=== PATIENT | male | born 1945 | race Caucasian/White ===

== ENCOUNTER 2016-11-06 08:18 | Outpatient (CLI) | payer MEDICARE ==
[2016-11-06 12:48] LABS: ALBUMIN/GLOBULIN RATIO 1.4 (1.0-2.2); BILIRUBIN,TOTAL 0.8 mg/dL (0.2-1.0); CREATININE 0.9 mg/dL (0.6-1.2); POTASSIUM 4.2 mmol/L (3.5-5.0); TOTAL PROTEIN 7.1 g/dL (6.7-8.2)
[2016-11-06 12:50] LABS: HEMOGLOBIN A1C 0.61 g/dL
[2016-11-06 12:58] LABS: BASOPHILS # (AUTO) 0.1 10^3/uL (0.0-0.1); BASOPHILS % (AUTO) 0.9 %; EOSINOPHILS # (AUTO) 0.4 10^3/uL (0.0-0.7); EOSINOPHILS % (AUTO) 6.3 %; HCT - HEMATOCRIT 45.3 % (42.0-52.0); HGB - HEMOGLOBIN 15.3 g/dL (14.0-18.0); LYMPHOCYTES # (AUTO) 2.2 10^3/uL (1.5-3.5); LYMPHOCYTES % (AUTO) 39.1 %; MEAN CORPUSCULAR HEMOGLOBIN 30.7 pg (27.0-31.0); MEAN CORPUSCULAR HGB CONC 33.8 g/dL (32.0-36.0); MEAN CORPUSCULAR VOLUME 90.8 fL (80.0-94.0); MONOCYTES # (AUTO) 0.5 10^3/uL (0.0-1.0); MONOCYTES % (AUTO) 8.9 %; NEUTROPHILS # (AUTO) 2.6 10^3/uL (1.5-6.6); NEUTROPHILS % (AUTO) 44.8 %; NUCLEATED RED BLOOD CELLS AUTO 0.1 /100WBC; RED BLOOD COUNT 4.99 10^6/uL (4.70-6.10); UNCORRECTED WHITE BLOOD COUNT 5.7 x10^3/uL; WHITE BLOOD COUNT 5.7 x10^3/uL (4.8-10.8)
== END 2016-11-06 08:19 | disposition home or self-care (01) ==
LOC: LAB.N 08:18
PROVIDERS: ATTEND Internal Medicine
DX: R73.9 Hyperglycemia, unspecified (principal); M16.0 Bilateral primary osteoarthritis of hip; E04.1 Nontoxic single thyroid nodule
CPT/HCPCS: 36415; 80053; 83036; 84443; 85025

== ENCOUNTER 2017-02-28 09:10 | Emergency (ER) | payer MEDICARE, OTHER ==
[2017-02-28] MEDS ORDERED: KETOROLAC 30 MG/ML VIAL IM STA (10:40)
[2017-02-28] MEDS ORDERED: MORPHINE 10 MG/ML VIAL IM STA (10:40)
[2017-02-28] MEDS ORDERED: ACETAMINOPHEN 500 MG TABLET PO STA (10:41)
--- NOTE | 2017-02-28 10:43 | ED Physician Documentation ---
History of Present Illness - Stated complaint Stated Complaint: R HIP PAIN - Chief complaint Chief Complaint: Ext Problem - Additonal information Additional information: 71-year-old male with history of chronic right hip pain presents to the emergency department with worsening right hip pain as well as low back pain radiating down his leg for 1 day since doing lifting and moving of heavy wood yesterday. He has no weakness or numbness, he reports that his knee felt a little bit tingly or numb this morning and this has resolved. No trauma Review of Systems Constitutional: denies: Fever GI: reports: Reviewed and negative : reports: Reviewed and negative Musculoskeletal: reports: Back pain, Extremity pain Neurologic: reports: Reviewed and negative. denies: Numbness PD PAST MEDICAL HISTORY - Past Medical History Past Medical History: Yes Musculoskeletal: Osteoarthritis - Past Surgical History Past Surgical History: No - Present Medications Home Medications: Ambulatory Orders Medication Instructions Recorded Confirmed Acetaminophen [Tylenol] 650 mg PO Q6H PRN #30 tab 02/28/17 Cyclobenzaprine [Flexeril] 10 mg PO TID PRN #20 tablet 02/28/17 Naproxen [Naprosyn] 500 mg PO BID PRN #30 tablet 02/28/17 - Allergies Allergies/Adverse Reactions: Allergies Allergy/AdvReac Type Severity Reaction Status Date / Time penicillin G Allergy Rash Verified 02/28/17 09:29 anti Allergy Unknown Uncoded 02/28/17 09:34 - Social History Does the pt smoke?: No Smoking Status: Never smoker Does the pt drink ETOH?: No Does the pt have substance abuse?: No - Immunizations Immunizations are current?: Yes - POLST Patient has POLST: No PD ED PE NORMAL - Vitals Vital signs reviewed: Yes - General General: Alert and oriented X 3, No acute distress - HEENT HEENT: PERRL - Neck Neck: Supple, no meningeal sign - Cardiac Cardiac: RRR, No murmur - Respiratory Respiratory: Clear bilaterally - Abdomen Abdomen: Normal bowel sounds, Soft, Non tender, Non distended - Back Back: Other (no midline TTP, mild right lumbar TTP ) - Derm Derm: Warm and dry - Extremities Extremities: No deformity, Other (mild right hip TTP, no deformity, FROM ) - Neuro Neuro: Alert and oriented X 3 - Psych Psych: Normal mood, Normal affect PD ED PE EXPANDED - Neuro Neuro: Normal motor, Normal Sensation (full strength lower extremities, saddle anesthesia). No: Weakness Results - Vitals Vitals: Vital Signs - 24 hr 02/28/17 02/28/17 02/28/17 09:26 11:32 13:55 Temperature 36 C L 36.3 C L Heart Rate 58 L 56 L 60 Respiratory 18 16 20 Rate Blood Pressure 159/81 H 148/61 H 140/75 H O2 Saturation 99 98 99 Oxygen O2 Source Room air PD MEDICAL DECISION MAKING - ED course ED course: 71 year old male with no significant past medical history p/w low back and leg pain consistent with sciatica or lumbar radiculopathy. Neurovascularly intact. No injury or bony TTP concerning for fracture. Return precautions and follow up instructions reviewed. Departure - Departure Disposition: 01 Home, Self Care Clinical Impression: Pain of lower extremity Qualifiers: Laterality: right Qualified Code(s): M79.604 - Pain in right leg Low back pain Qualifiers: Chronicity: acute Back pain laterality: right Sciatica presence: with sciatica Sciatica laterality: sciatica of right side Qualified Code(s): M54.41 - Lumbago with sciatica, right side Instructions: ED Back Care Tips, ED Low Back Pain Injury Follow-Up: Travis Salgado MD [Primary Care Provider] - Prescriptions: Acetaminophen [Tylenol] 650 mg PO Q6H PRN #30 tab PRN Reason: Pain Cyclobenzaprine [Flexeril] 10 mg PO TID PRN #20 tablet PRN Reason: Spasms Naproxen [Naprosyn] 500 mg PO BID PRN #30 tablet PRN Reason: Pain Comments: You should take it easy with plenty of restNo lifting over the next few days until you are feeling better. Make an appointment with her primary care doctor for follow-up, you may need physical therapy if her symptoms do not improve. You prescribed Naprosyn today, stop taking ibuprofen and did not take other NSAIDs such as aspirin. It is best to take this with food as it may irritate her stomach. You may take Tylenol as well. Return to the emergency department if you develop any problems with urination or your bowels or any numbness or weakness. Discharge Date/Time: 02/28/17 13:56
[2017-02-28] MEDS ORDERED: MORPHINE 10 MG/ML VIAL ONE (10:48)
[2017-02-28] MEDS ORDERED: KETOROLAC 30 MG/ML VIAL ONE (10:54)
[2017-02-28] MEDS ORDERED: ACETAMINOPHEN 500 MG TABLET PO ONE (10:54)
[2017-02-28 13:56] VITALS: BP 140/75
== END 2017-02-28 13:56 | disposition home or self-care (01) ==
LOC: ED 09:10
DX: M79.604 Pain in right leg (principal); M54.41 Lumbago with sciatica, right side; G89.29 Other chronic pain
CPT/HCPCS: 96372; 99283; A9270

== ENCOUNTER 2017-03-07 10:32 | Emergency (ER) | payer MEDICARE, OTHER ==
[2017-03-07 10:41] VITALS: BP 147/90
[2017-03-07] MEDS ORDERED: DEXAMETHASONE 10 MG/ML VIAL IM STA (13:05)
--- NOTE | 2017-03-07 13:11 | ED Physician Documentation ---
History of Present Illness - Stated complaint Stated Complaint: R LEG PX - Chief complaint Chief Complaint: Ext Problem - History obtained from History obtained from: Patient - History of Present Illness Timing: How many weeks ago (1) Pain level max: 9 Pain level now: 5 - Additonal information Additional information: Patient is a 71-year-old gentleman with a history of chronic low back pain as well as right hip osteoarthritis. States after cleaning up a construction site a week ago has had increasing pain on the right leg in the right knee. Worse with walking. Better with rest. He states that his been preventing him from sleeping at night. Has been taking Naprosyn and Tylenol as prescribed, but is now starting to develop some slight epigastric pain. No vomiting. No diarrhea. No blood in the stool or hematemesis. Patient is not using any assistive walking devices or braces. Review of Systems Constitutional: denies: Fever, Chills Respiratory: denies: Cough GI: denies: Nausea, Vomiting, Diarrhea, Hematemesis, Bloody / black stool Skin: denies: Rash Musculoskeletal: denies: Neck pain Neurologic: denies: Focal weakness, Numbness, Confused, Altered mental status PD PAST MEDICAL HISTORY - Past Medical History Past Medical History: Yes Musculoskeletal: Osteoarthritis - Past Surgical History Past Surgical History: No - Present Medications Home Medications: Ambulatory Orders Medication Instructions Recorded Confirmed Acetaminophen [Tylenol] 650 mg PO Q6H PRN #30 tab 02/28/17 03/07/17 Naproxen [Naprosyn] 500 mg PO BID PRN #30 tablet 02/28/17 03/07/17 Diclofenac Sodium [Voltaren] 4 gm TP Q8H PRN #1 gel..gram. 03/07/17 Hydrocodone/Acetaminophen 1 - 2 each PO Q6H PRN #10 tablet 03/07/17 [Hydrocodon-Acetaminophen 5-325] - Allergies Allergies/Adverse Reactions: Allergies Allergy/AdvReac Type Severity Reaction Status Date / Time penicillin G Allergy Rash Verified 03/07/17 10:41 anti Allergy Unknown Uncoded 02/28/17 09:34 - Social History Does the pt smoke?: No Smoking Status: Never smoker Does the pt drink ETOH?: No Does the pt have substance abuse?: No - Immunizations Immunizations are current?: Yes - POLST Patient has POLST: No PD ED PE NORMAL - Vitals Vital signs reviewed: Yes - General General: Alert and oriented X 3, No acute distress, Well developed/nourished - HEENT HEENT: PERRL, Moist mucous membranes - Neck Neck: Supple, no meningeal sign - Cardiac Cardiac: RRR, Strong equal pulses - Respiratory Respiratory: No respiratory distress, Clear bilaterally - Abdomen Abdomen: Soft, Non tender, Non distended - Back Back: No spinal TTP - Derm Derm: Warm and dry - Extremities Extremities: Other (Right lower extremity -Full range of motion of the hip as well as the knee without pain on passive range of motion. Neurovascularly intact. ACL, MCL, PCL, LCL are intact.) - Neuro Neuro: Alert and oriented X 3 - Psych Psych: Normal mood, Normal affect Results - Vitals Vitals: Vital Signs - 24 hr 03/07/17 10:36 Temperature 36.3 C L Heart Rate 92 Respiratory 16 Rate Blood Pressure 147/90 H O2 Saturation 99 Oxygen O2 Source Room air PD MEDICAL DECISION MAKING - ED course Complexity details: reviewed old records, considered differential, d/w patient ED course: Patient is a 71-year-old male who presents to the emergency department what appears to be musculoskeletal pain of the right lower extremity. Will stop the Naprosyn and place on Voltaren gel. Also prescribe a small amount of hydrocodone. He is ambulating with a normal gait in the emergency department. No evidence of fracture clinically. No joint effusion. No evidence of cellulitis or DVT. No edema. No calf tenderness. Patient counseled regarding signs and symptoms for which I believe and urgent re-evaluation would be necessary. Patient with good understanding of and agreement to plan and is comfortable going home at this time This document was made in part using voice recognition software. While efforts are made to proofread this document, sound alike and grammatical errors may occur. Departure - Departure Disposition: 01 Home, Self Care Clinical Impression: Osteoarthritis Qualifiers: Osteoarthritis location: hip Osteoarthritis type: primary Laterality: right Qualified Code(s): M16.11 - Unilateral primary osteoarthritis, right hip Pain of lower extremity Qualifiers: Laterality: right Qualified Code(s): M79.604 - Pain in right leg Condition: Good Instructions: ED Strain Muscle Ext Follow-Up: Travis Salgado MD [Primary Care Provider] - Within 1 week Prescriptions: Diclofenac Sodium [Voltaren] 4 gm TP Q8H PRN #1 gel..gram. PRN Reason: hip pain Hydrocodone/Acetaminophen [Hydrocodon-Acetaminophen 5-325] 1 - 2 each PO Q6H PRN #10 tablet PRN Reason: pain Comments: Stop the Naprosyn and try the Voltaren gel instead. Return if you worsen. You would likely benefit from physical therapy and this can be arranged with your doctor. Do not drink alcohol or drive while on narcotic pain medicine. Note that many narcotic pain relievers also contain tylenol/acetaminophen. Please ensure that your total dose of acetaminophen from all sources does not exceed 3 grams (3000mg) per day. You may constipated on this medication, take a stool softener such as "Colace" twice a day while you are on it. Also recommend a gutv-fdd-vwxdkxs laxative such as senna or MiraLAX any day that you do not have a bowel movement. If you received narcotic pain medication in the emergency department, do not drive or operate machinery for the next 24 hours. This document was made in part using voice recognition software. While efforts are made to proofread this document, sound alike and grammatical errors may occur.
[2017-03-07] MEDS ORDERED: DEXAMETHASONE 10 MG/ML VIAL ONE (13:13)
== END 2017-03-07 13:28 | disposition home or self-care (01) ==
LOC: ED 10:32
DX: M16.11 Unilateral primary osteoarthritis, right hip (principal); M79.604 Pain in right leg; M25.561 Pain in right knee; M54.5 Low back pain; G89.29 Other chronic pain
CPT/HCPCS: 96372; 99283

== ENCOUNTER 2017-03-18 11:36 | Outpatient (CLI) | payer MEDICARE, OTHER ==
--- NOTE | 2017-03-18 20:33 | MRI Report ---
EXAM: MRI LUMBAR SPINE WITHOUT CONTRAST EXAM DATE: 03/18/2017 12:34 PM. CLINICAL HISTORY: Lumbago with right-sided sciatica. COMPARISON: None. TECHNIQUE: Multiplanar, multisequence T1-weighted and fluid-sensitive sequences of the lumbar spine f rom T12 to S1 without contrast. Other: None. FINDINGS: Spinal Cord: The conus terminates at T12/L1. The conus medullaris and cauda equina are unremarkable. Alignment: No scoliosis or spondylolisthesis. Bone Marrow: Five zlu-wdd-vwkgawv lumbar vertebral bodies are assumed. No fractures. Type I endplate change is seen at L4-L5 and L5-S1. Disk Levels/Facets: T11-T12: The disk is desiccated. Anterior endplate spurring is present. T12-l1: Unremarkable. L1-L2: The disk is desiccated. Anterior endplate spurring is present. L2-L3: The disk is desiccated. A small right foraminal area protrusions results in minimal right fora suzanne narrowing. L3-L4: The disk is desiccated. A broad-based posterior disk protrusion results in mild spinal canal, moderate right foraminal narrowing and minimal left foraminal narrowing. L4-L5: A broad-based disk bulge, mild ligamentum flavum hypertrophy, and mild facet hypertrophy cause mild spinal canal, minimal right foraminal, and moderate left foraminal narrowing. L5-S1: Severe disk height loss is present. Anterior endplate spurring is present. A posterior disk/os teophyte complex and mild facet hypertrophy cause moderate bilateral foraminal narrowing. Musculature: Normal. No edema or fatty atrophy. Other: The partially visualized retroperitoneum is unremarkable. IMPRESSION: 1. Mild spinal canal and moderate right foraminal narrowing at L3-L4 due to disk protrusion. 2. Mild spinal canal and moderate left foraminal narrowing at L4-L5 due to disk and posterior element degenerative changes. 3. Moderate bilateral foraminal narrowing at L5-S1 due to disk and posterior element degenerative damion nges. Comment: The following findings are so common in adults without low back pain that while we report th eir presence, they must be interpreted with caution and in the context of the clinical situation. (Re jyothi Chinchilla et al, Spine 2001) Prevalence of findings in patients without low back pain: Disk degeneration (any evidence): 92% Disk desiccation/T2 signal loss: 83% Disk height loss: 56% Disk bulge: 64% Disk protrusion: 32% Annular tear/high intensity zone: 38% [facility] Referring Provider Line: [phone] SITE ID: [id number]
== END 2017-03-18 11:37 | disposition home or self-care (01) ==
LOC: DI 11:36
PROVIDERS: ATTEND Internal Medicine
DX: M51.16 Intervertebral disc disorders with radiculopathy, lumbar region (principal)
CPT/HCPCS: 72148

== ENCOUNTER 2017-11-02 12:22 | Outpatient (CLI) | payer MEDICARE, OTHER ==
[2017-11-02 13:07] LABS: ALBUMIN 4.3 g/dL (3.2-5.5); ALBUMIN/GLOBULIN RATIO 1.2 (1.0-2.2); BILIRUBIN,TOTAL 1.5 mg/dL (0.2-1.0); CALCIUM 8.8 mg/dL (8.5-10.3); CREATININE 0.8 mg/dL (0.6-1.2); TOTAL PROTEIN 7.8 g/dL (6.7-8.2)
[2017-11-02 14:04] LABS: HB2 TOTAL 17.1 g/dL; HEMOGLOBIN A1C 0.63 g/dL; HEMOGLOBIN A1C % 5.5 % (4.6-6.2)
== END 2017-11-02 12:23 | disposition home or self-care (01) ==
LOC: LAB 12:22
PROVIDERS: ATTEND Internal Medicine
DX: M16.0 Bilateral primary osteoarthritis of hip (principal); R73.9 Hyperglycemia, unspecified; Z12.5 Encounter for screening for malignant neoplasm of prostate; E04.1 Nontoxic single thyroid nodule; Z79.899 Other long term (current) drug therapy
CPT/HCPCS: 36415; 80053; 83036; 84443; G0103; 84153

== ENCOUNTER 2018-03-09 09:55 | Emergency (ER) | payer MEDICARE, OTHER ==
[2018-03-09 11:48] VITALS: BP 126/66
[2018-03-09 11:57] LABS: BILIRUBIN,URINE NEGATIVE (NEGATIVE); GLUCOSE, URINE (UA) NEGATIVE (NEGATIVE); KETONES,URINE (UA) NEGATIVE (NEGATIVE); LEUKOCYTE ESTERASE, URINE NEGATIVE (NEGATIVE); NITRITE,URINE NEGATIVE (NEGATIVE); OCCULT BLOOD,URINE NEGATIVE (NEGATIVE); PH,URINE 5.5 PH (5.0-7.5); PROTEIN,URINE NEGATIVE (NEGATIVE); UROBILINOGEN,URINE 0.2 (NORMAL) E.U./dL (NORMAL)
[2018-03-09 12:01] LABS: CLARITY,URINE CLEAR (CLEAR)
--- NOTE | 2018-03-09 12:04 | ED Physician Documentation ---
PD HPI ABD PAIN - Stated complaint Stated Complaint: ABD PX/RASH - Chief complaint Chief Complaint: Abd Pain - History obtained from History obtained from: Patient - History of Present Illness Timing - onset: How many days ago (several) Timing - duration: Days (several days of diarrhea and left sided abd pain. Has developed rash and pain in perirectal area.) Timing - details: Gradual onset, Waxing and waning Quality: Cramping, Aching. No: Sharp, Fullness/distended Location: LLQ Radiation: No: Left flank Improved by: BM. No: Eating Worsened by: No: Eating Associated symptoms: Diarrhea. No: Fever, Nausea, Vomiting, Constipation, Melena Similar symptoms before: Has not had sx before Recently seen: Not recently seen Review of Systems Constitutional: denies: Fever, Chills, Myalgias Nose: denies: Rhinorrhea / runny nose, Congestion Throat: denies: Sore throat Cardiac: denies: Chest pain / pressure Respiratory: denies: Dyspnea, Cough GI: reports: Abdominal Pain, Diarrhea. denies: Nausea, Vomiting, Bloody / black stool : denies: Dysuria, Frequency Skin: reports: Rash Neurologic: denies: Generalized weakness PD PAST MEDICAL HISTORY - Past Medical History Past Medical History: Yes GI: None Musculoskeletal: Osteoarthritis - Past Surgical History Past Surgical History: No - Present Medications Home Medications: Ambulatory Orders Medication Instructions Recorded Confirmed Acetaminophen [Tylenol] 650 mg PO Q6H PRN #30 tab 02/28/17 03/07/17 Naproxen [Naprosyn] 500 mg PO BID PRN #30 tablet 02/28/17 03/07/17 Diclofenac Sodium [Voltaren] 4 gm TP Q8H PRN #1 gel..gram. 03/07/17 Hydrocodone/Acetaminophen 1 - 2 each PO Q6H PRN #10 tablet 03/07/17 [Hydrocodon-Acetaminophen 5-325] Clotrimazole/Betamethasone Dip 1 applic TP TID #30 cream..g. 03/09/18 [Clotrimazole-Betamethasone Crm] Fluconazole [Diflucan] 150 mg PO ONCE #1 tablet 03/09/18 Loperamide [Imodium] 2 mg PO QID PRN #20 capsule 03/09/18 Naproxen 500 mg PO BID #20 tablet 03/09/18 Saccharomyces Boulardii [Florastor] 250 mg PO BID #30 capsule 03/09/18 - Allergies Allergies/Adverse Reactions: Allergies Allergy/AdvReac Type Severity Reaction Status Date / Time penicillin G Allergy Rash Verified 03/09/18 10:06 anti Allergy Unknown Uncoded 02/28/17 09:34 - Social History Does the pt smoke?: No Smoking Status: Never smoker Does the pt drink ETOH?: No Does the pt have substance abuse?: No - Immunizations Immunizations are current?: Yes - POLST Patient has POLST: No PD ED PE NORMAL - Vitals Vital signs reviewed: Yes - General General: Alert and oriented X 3, Well developed/nourished - HEENT HEENT: Pharynx benign - Neck Neck: Supple, no meningeal sign, No adenopathy - Cardiac Cardiac: RRR, No murmur - Respiratory Respiratory: Clear bilaterally - Abdomen Abdomen: Normal bowel sounds, Soft, Non distended, No organomegaly, Other (some tenderness without guarding left abd lower. No percussion nor rebound tenderness. ) - Male Male : Deferred - Rectal Rectal: Other (perirectal rash with demarcated red edges c/w yeast infection. No skin breakdown but is raw appearing. Rectal is guiac negative with diarrheal stool in vault. ) Results - Vitals Vitals: Oxygen O2 Source Room air - Labs Labs: Laboratory Tests 03/09/18 03/09/18 03/09/18 10:03 12:35 12:35 WBC 6.9 RBC 5.17 Hgb 16.0 Hct 45.4 MCV 87.7 MCH 30.9 MCHC 35.2 RDW 12.4 Plt Count 201 MPV 7.4 Neut # (Auto) 3.1 Lymph # (Auto) 2.7 [place] # (Auto) 0.9 Eos # (Auto) 0.2 Baso # (Auto) 0.1 Absolute Nucleated RBC 0.00 Nucleated RBC % 0.0 Sodium 138 Potassium 3.8 Chloride 102 Carbon Dioxide 29 Anion Gap 7.0 BUN 12 Creatinine 0.9 Estimated GFR (MDRD) 83 L Glucose 104 H Calcium 9.2 Total Bilirubin 1.4 H AST 34 ALT 30 Alkaline Phosphatase 58 Total Protein 7.9 Albumin 4.5 Globulin 3.4 Albumin/Globulin Ratio 1.3 Lipase 39 Urine Color YELLOW Urine Clarity CLEAR Urine pH 5.5 Ur Specific Mere[place] <=1.005 Urine Protein NEGATIVE Urine Glucose (UA) NEGATIVE Urine Ketones NEGATIVE Urine Occult Blood NEGATIVE Urine Nitrite NEGATIVE Urine Bilirubin NEGATIVE Urine Urobilinogen 0.2 (NORMAL) Ur Leukocyte Esterase NEGATIVE Ur Microscopic Review NOT INDICATED Urine Culture Comments NOT INDICATED - Rads (name of study) abd/pelvic CT Radiology: Prelim report reviewed (diverticula without diverticulitis. No acute process. ) PD MEDICAL DECISION MAKING - ED course Complexity details: reviewed results (diverticula without diverticulitis. He has diarrhea and it has caused some yeast perirectal rash. Will treat the diarrhea, and also presume inflammatory colitis. ), considered differential, d/w patient Departure - Departure Disposition: 01 Home, Self Care Clinical Impression: Left sided abdominal pain, Perirectal inflammation Diarrhea Qualifiers: Diarrhea type: unspecified type Qualified Code(s): R19.7 - Diarrhea, unspecified Condition: Stable Record reviewed to determine appropriate education?: Yes Instructions: ED Abdominal Pain Unkn Cause Follow-Up: Travis Salgado MD [Primary Care Provider] - Prescriptions: Clotrimazole/Betamethasone Dip [Clotrimazole-Betamethasone Crm] 1 applic TP TID #30 cream..g. Fluconazole [Diflucan] 150 mg PO ONCE #1 tablet Loperamide [Imodium] 2 mg PO QID PRN #20 capsule PRN Reason: Diarrhea Naproxen 500 mg PO BID #20 tablet Saccharomyces Boulardii [Florastor] 250 mg PO BID #30 capsule Comments: Drink lots of fluids. I presume there is some irritation in the colon (colitis or mild diverticulitis). There is no signs of a focal infectious diverticulitis on her CT scan. We will treat this then with anti-inflammatories and probiotics and drink lots of fluids. You can use Imodium for the diarrhea. Regarding your perirectal rash, it looks like a yeast infection of the skin and so use the antifungal with steroid cream 2-3 times a day and it should improve over the next few days. Take a single antifungal tablet in 2-3 days as well. Recheck if not improving over the next several days. Discharge Date/Time: 03/09/18 15:16
[2018-03-09] MEDS ORDERED: FLUCONAZOLE 100 MG TABLET PO STA (12:31)
[2018-03-09] MEDS ORDERED: KETOROLAC 60 MG/2 ML VIAL IVP STA (12:35)
[2018-03-09] MEDS ORDERED: IOVERSOL 320 100 ML VIAL IVP ONE ×2 (12:39→14:04)
[2018-03-09 12:44] LABS: BASOPHILS # (AUTO) 0.1 10^3/uL (0.0-0.1); BASOPHILS % (AUTO) 0.8 %; EOSINOPHILS # (AUTO) 0.2 10^3/uL (0.0-0.7); EOSINOPHILS % (AUTO) 3.5 %; LYMPHOCYTES # (AUTO) 2.7 10^3/uL (1.5-3.5); LYMPHOCYTES % (AUTO) 38.4 %; MEAN CORPUSCULAR HEMOGLOBIN 30.9 pg (27.0-31.0); MEAN CORPUSCULAR HGB CONC 35.2 g/dL (32.0-36.0); MEAN CORPUSCULAR VOLUME 87.7 fL (80.0-94.0); MEAN PLATELET VOLUME 7.4 fL (7.4-11.4); MONOCYTES # (AUTO) 0.9 10^3/uL (0.0-1.0); MONOCYTES % (AUTO) 12.5 %; NEUTROPHILS # (AUTO) 3.1 10^3/uL (1.5-6.6); NEUTROPHILS % (AUTO) 44.8 %; PLT - PLATELET COUNT 201 10^3/uL (130-450); RED BLOOD COUNT 5.17 10^6/uL (4.70-6.10); RED CELL DISTRIBUTION WIDTH 12.4 % (12.0-15.0); WHITE BLOOD COUNT 6.9 x10^3/uL (4.8-10.8)
[2018-03-09 12:55] LABS: ALBUMIN 4.5 g/dL (3.2-5.5); ALBUMIN/GLOBULIN RATIO 1.3 (1.0-2.2); BILIRUBIN,TOTAL 1.4 mg/dL (0.2-1.0); CALCIUM 9.2 mg/dL (8.5-10.3); CREATININE 0.9 mg/dL (0.6-1.2); TOTAL PROTEIN 7.9 g/dL (6.7-8.2)
--- NOTE | 2018-03-09 14:22 | CT Report ---
Reason: left abd pain and diarrhea Procedure Date: 03/09/2018 Accession Number: [id number] / [id number] Procedure: CT - Abdomen/Pelvis W/ CPT Code: FULL RESULT: EXAM: CT ABDOMEN AND PELVIS EXAM DATE: 03/09/2018 02:02 PM. CLINICAL HISTORY: Left abdominal pain and diarrhea. COMPARISONS: None. TECHNIQUE: Routine helical CT imaging was performed through the abdomen and pelvis. IV contrast: 90 ML OPTIRAY 320. Enteric contrast: No. Reconstructions: Coronal and sagittal. In accordance with CT protocol optimization, one or more of the following dose reduction techniques were utilized for this exam: automated exposure control, adjustment of mA and/or KV based on patient size, or use of iterative reconstructive technique. FINDINGS: Lung Bases: Unremarkable. Liver: Normal. No masses. Gallbladder/Bile Ducts: Status post cholecystectomy. Spleen: Normal. Pancreas: Normal. Adrenal Glands: Normal. Kidneys: Normal. No masses or hydronephrosis. Peritoneal Cavity/Bowel: Mild sigmoid diverticulosis without diverticulitis. No free fluid, free air or adenopathy. No masses or acute inflammatory process. The appendix is well visualized and normal. Pelvic Organs: Normal. The bladder and visualized pelvic organs are within normal limits. Vasculature: No aneurysms or other significant abnormality. Bones: No significant abnormality. Other: None. IMPRESSION: No acute abnormalities identified. [facility]
== END 2018-03-09 15:16 | disposition home or self-care (01) ==
LOC: ED 09:55
DX: R10.32 Left lower quadrant pain (principal); R19.7 Diarrhea, unspecified; B37.2 Candidiasis of skin and nail
CPT/HCPCS: 36415; 74177; 80053; 81003; 83690; 85025; 96374; 99283; A9270; Q9967; 81001; 87086